=== PATIENT | male | born 1950 | race Caucasian/White ===

== ENCOUNTER 2016-12-21 11:12 | Inpatient (IN) | payer OTHER ==
[2016-12-21] MEDS ORDERED: ASPIRIN 81 MG CHEWABLE TAB PO ONE (11:18)
--- NOTE | 2016-12-21 11:23 | CPEKG ---
Heart Rate: 60 RR Interval: 1000 P-R Interval: 132 QRSD Interval: 96 QT Interval: 416 QTC Interval: 416 P [place]: 75 QRS [place]: -18 T Wave [place]: 79 EKG Severity - OTHERWISE NORMAL ECG - EKG Impression: SINUS RHYTHM EKG Impression: BORDERLINE LEFT AXIS DEVIATION Electronically Signed By: Tessa Bains 21-Dec-2016 15:55:53
[2016-12-21 11:34] LABS: % IMMATURE GRANULYOCYTES 0.4 % (0.0-1.1); ABSOLUTE IMMATURE GRANULOCYTES 0.03 10^3/uL (0.00-0.10); ADD DIFF? NO; ADD MORPH? NO; ADD SCAN? NO; ATYPICAL LYMPHOCYTE FLAG 10 (0-99); FRAGMENT RBC FLAG 0 (0-99); HEMATOCRIT 50.9 % (40.0-51.0); HEMOGLOBIN 17.5 g/dL (13.7-17.5); LEFT SHIFT FLG 0 (0-99); LIPEMIA HEMOLYSIS FLAG 90 (0-99); MEAN CELL HEMOGLOBIN 33.3 pg (27.9-34.1); MEAN CELL HEMOGLOBIN CONCENTR. 34.4 g/dL (32.4-36.7); MEAN PLATELET VOLUME 10.9 fL (8.7-11.7); PLATELET CLUMPS FLAG 20 (0-99); PLATELET COUNT 187 10^3/uL (150-400); RED BLOOD CELL COUNT 5.25 10^6/uL (4.40-6.38); RED CELL DISTRIBUTION WIDTH 12.4 % (11.5-15.2)
[2016-12-21 11:44] LABS: ANION GAP 11 mEq/L (8-16); CALCIUM 9.9 mg/dL (8.5-10.4); CARBON DIOXIDE 28 mEq/l (22-31); CHLORIDE 101 mEq/L (97-110); CREATININE 1.3 mg/dL (0.7-1.3); GLOMERULAR FILTRATION RATE 55; GLUCOSE 91 mg/dL (70-100); SODIUM 140 mEq/L (134-144)
--- NOTE | 2016-12-21 11:46 | EDPHY ---
H & P Stated Complaint: Chest Pain HPI/ROS: CHIEF COMPLAINT: Chest pain HISTORY OF PRESENT ILLNESS: The patient is a 66-year-old male presenting with 10 days of intermittent chest pain. The patient reports these episodes usually occur with exertion. Last night around 4am he woke up with chest congestion and dyspnea. This lasted for 20-30 minutes and then resolved. The patient was able to go back to sleep after pain subsided. The patient experienced similar symptoms in 2013 and was admitted. He had a nuclear stress test performed that was normal. , diabetes, or hyperlipidemia. He does not smoke cigarettes. His mother had coronary artery bypass grafting performed when she was in her 70s. REVIEW OF SYSTEMS: A ten point review of systems was performed and is negative with the exception of the items mentioned in the HPI. Past medical history: Diverticulitis, Erectile dysfunction Past surgical history: Knee replacement. Family history: Mother with CAD, had CABG. Social history: Nonsmoker. 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 , lives with at home. General Appearance: Alert. Vital signs reviewed. BP 158/82 Eyes: Pupils equal and round, no conjunctival injection, no discharge. Anicteric. ENT, Mouth: Mucous membranes are moist, no oropharyngeal erythema or edema. Neck: No lymphadenopathy, supple. Respiratory: Lungs are clear to auscultation; no wheezes, rales, or rhonchi. Cardiovascular: Regular rate and rhythm; no murmur, rub, or gallop. Gastrointestinal: Abdomen is soft and nontender, no masses or organomegaly, bowel sounds normal. Skin: Warm and dry, no rashes on exposed skin, normal color. Back: Nontender to palpation over the thoracolumbar spine. No CVAT. Extremities: No lower extremity edema, no calf tenderness or swelling. Neurological: Alert and oriented. Moving all four extremities easily and equally. Psychiatric: Normal affect. Source: Patient - Personal History Current Tetanus Diphtheria and Acellular Pertussis (TDAP): Yes Tetanus Vaccine Date: < 10 years - Medical/Surgical History Hx Asthma: No Hx Chronic Respiratory Disease: No Hx Diabetes: No Hx Cardiac Disease: No Hx Renal Disease: No Hx Cirrhosis: No Hx Alcoholism: No Hx HIV/AIDS: No Hx Splenectomy or Spleen Trauma: No Other PMH: Knee Replacement - Social History Smoking Status: Never smoked Constitutional: Initial Vital Signs Temperature (C) 36.7 C 12/21/16 11:20 Heart Rate 60 08/22/17 11:20 Respiratory Rate 18 12/21/16 11:20 Blood Pressure 158/82 H 12/21/16 11:20 O2 Sat (%) 97 12/21/16 11:20 O2 Delivery Mode Room Air Allergies/Adverse Reactions: No Known Allergies Allergy (Verified 07/01/15 09:13) Home Medications: Medication Instructions Recorded Cholecalciferol (Vitamin D3) 5,000 unit PO DAILY 11/13/13 [Vitamin D3] Herbals/Supplements -Info Only 1 ea PO DAILY 11/13/13 Testosterone Cypionate 0.4 ml IM ALVAREZ 11/13/13 Medical Decision Making - Diagnostics EKG Interpretation: 12 lead EKG is interpreted in Trace master View by emergency department physician. No changes compared to previous. Imaging Results: Imaging Impressions Chest X-Ray 12/21/16 11:18 Impression: No acute pulmonary disease. Imaging: Discussed imaging studies w/ call center rn Radiologist, I viewed and interpreted images myself ED Course/Re-evaluation: The patient presents with intermittent chest pain on exertion for the past 10 days. Last night chest pain woke him from sleep. Plan for cardiac work up. He was sent here by his PCP Dr. Holland for further evaluation. I ordered Chest x-ray and lab work including CBC, Chemistry, and Troponin. Chest x-ray is normal. Troponin is normal. Lab work is otherwise negative. Patient received 324mg Aspirin. The 12 lead EKG was interpreted by myself: Mild ST depression in leads V4 and V5. See hard copy and/or "tracemaster" electronic copy for interpretation. 1:35 p.m.: I spoke to the hospitalist team, the patient will be admitted to Dr. Miramontes. Is minimal cardiac risk factors but has been experiencing chest pain with exertion that resolves with rest. It is not clear to me whether last night's episode was pain or dyspnea--if pain, that means he had an episode of chest pain while at rest. I am concerned about unstable angina in this setting. He is being admitted for serial cardiac enzymes and further testing as needed. He did undergo nuclear stress test in 2013. Differential Diagnosis: Chest pain including but not limited to myocardial ischemia, pulmonary embolus, chest wall pain, pleural inflammation and pulmonary infectious causes. - Data Points Laboratory Results: Laboratory Results 12/21/16 11:27 12/21/16 11:27 12/21/16 12/21/16 11:27 11:27 WBC 7.29 10^3/uL 10^3/uL (3.80-9.50) RBC 5.25 10^6/uL 10^6/uL (4.40-6.38) Hgb 17.5 g/dL g/dL (13.7-17.5) Hct 50.9 % % (40.0-51.0) MCV 97.0 fL fL (81.5-99.8) MCH 33.3 pg pg (27.9-34.1) MCHC 34.4 g/dL g/dL (32.4-36.7) RDW 12.4 % % (11.5-15.2) Plt Count 187 10^3/uL 10^3/uL (150-400) MPV 10.9 fL fL (8.7-11.7) Neut % (Auto) 60.2 % % (39.3-74.2) Lymph % (Auto) 25.7 % % (15.0-45.0) [place] % (Auto) 9.6 % % (4.5-13.0) Eos % (Auto) 3.4 % % (0.6-7.6) Baso % (Auto) 0.7 % % (0.3-1.7) Nucleat RBC Rel Count 0.0 % % (0.0-0.2) Absolute Neuts (auto) 4.39 10^3/uL 10^3/uL (1.70-6.50) Absolute Lymphs (auto) 1.87 10^3/uL 10^3/uL (1.00-3.00) Absolute Monos (auto) 0.70 10^3/uL 10^3/uL (0.30-0.80) Absolute Eos (auto) 0.25 10^3/uL 10^3/uL (0.03-0.40) Absolute Basos (auto) 0.05 10^3/uL 10^3/uL (0.02-0.10) Absolute Nucleated RBC 0.00 10^3/uL 10^3/uL (0-0.01) Immature Gran % 0.4 % % (0.0-1.1) Immature Gran # 0.03 10^3/uL 10^3/uL (0.00-0.10) Sodium 140 mEq/L mEq/L (134-144) Potassium 5.0 mEq/L mEq/L (3.5-5.2) Chloride 101 mEq/L mEq/L (97-110) Carbon Dioxide 28 mEq/l mEq/l (22-31) Anion Gap 11 mEq/L mEq/L (8-16) BUN 17 mg/dL mg/dL (7-23) Creatinine 1.3 mg/dL mg/dL (0.7-1.3) Estimated GFR 55 Glucose 91 mg/dL mg/dL (70-100) Calcium 9.9 mg/dL mg/dL (8.5-10.4) Troponin I < 0.012 ng/mL ng/mL (0.000-0.034) Medications Given: Discontinued Medications Aspirin (Aspirin) 324 mg PO EDNOW ONE Stop: 12/21/16 11:19 Last Admin: 12/21/16 11:25 Dose: 324 mg Departure - Departure Disposition: [facility] Inpatient Acute Clinical Impression: Chest pain on exertion Condition: Fair Report Scribed for: Tessa Bains Report Scribed by: Idalia Hidalgo Date of Report: 12/21/16 Time of Report: 13:56 Physician Review and Approval Statement: 12/21/16 13:56 Portions of this note were transcribed by the registered medical assistant. I, Dr. Tessa Bains, personally performed the history, physical exam, and medical decision- making; and confirmed the accuracy of the information in the transcribed note.
[2016-12-21 11:56] LABS: TROPONIN I < 0.012 ng/mL (0.000-0.034)
[2016-12-21] MEDS ORDERED: ACETAMINOPHEN 325 MG TAB PO PRN (14:10)
[2016-12-21] MEDS ORDERED: ONDANSETRON 4 MG/2 ML VIAL IVP PRN (14:10)
[2016-12-21] MEDS ORDERED: ONDANSETRON DISINTEGRATING 4 MG TAB PO PRN (14:10)
[2016-12-21] MEDS ORDERED: TEMAZEPAM 15 MG CAP PO PRN (14:10)
--- NOTE | 2016-12-21 14:44 | GHP ---
[f rep st] HISTORY AND PHYSICAL DATE OF ADMISSION: 12/21/2016 CHIEF COMPLAINT: Chest pain. HISTORY OF PRESENT ILLNESS: This is a 66-year-old male with minor cardiac risk factors, presenting with 10 days of exertional chest pressure, relieved with rest. He does admit to some shortness of b reath that is associated. No significant loss of exercise tolerance. No chest pain at rest. He di d have a stress test done 2 years ago for chest pain that was different in nature. He denies any fe vers or chills. REVIEW OF SYSTEMS: A 10-point review of systems was obtained, and other than stated, was negative. PAST MEDICAL HISTORY: Hypogonadism. MEDICATIONS: Reviewed. SOCIAL HISTORY: No smoking or alcohol. 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 FAMILY HISTORY: Mother had CABG in her 70s. PHYSICAL EXAM: VITAL SIGNS: Afebrile, blood pressure is 146/62, heart rate 62, oxygen saturation i s 93% on room air. GENERAL: Patient is well developed, , in no apparent distress. HEENT : Nonicteric sclerae. Extraocular movements intact. Moist mucous membranes. NECK: Supple. No t hyromegaly. LUNGS: Good effort. Clear to auscultation bilaterally. CARDIOVASCULAR: Regular rate and rhythm. No murmurs, rubs, or gallops. ABDOMEN: Positive bowel sounds. Soft, nontender, nond istended. No hepatosplenomegaly. EXTREMITIES: No clubbing, cyanosis, or edema. SKIN: Without ra sh, dry, intact. NEUROLOGIC: Moving all 4 extremities equally. PSYCH: Normal mood and affect. LABS: CBC, chemistry and troponin are negative. EKG, personally reviewed and interpreted, shows so me slight ST-segment depressions in V3 and V4, and in 2. ASSESSMENT: This is a 66-year-old male, who presented with exertional chest pain. PLAN: Exertional chest pain. The patient will be admitted. We will cycle cardiac enzymes. We had a discussion with Cardiology, that he does have some subtle EKG changes, with exertional chest pain , may be reasonable to go directly to heart cath versus stress testing, but we will discuss with Car diolQuinceey. /[id number]/MODL
[2016-12-22 04:01] LABS: CHOLESTEROL 185 mg/dL (140-220); CHOLESTEROL/HDL RATIO 5.97 RATIO (1.00-4.97); HIGH DENSITY LIPOPROTEIN 31 mg/dL (40-65); LDL/HDL RATIO 3.58 RATIO (1.00-3.64); LOW DENSITY LIPOPROTEIN 111 mg/dL (80-100); NON-HIGH DENSITY LIPOPROTEIN 154 mg/dL (90-129); TRIGLYCERIDE 216 mg/dL (40-150); VERY LOW DENSITY LIPOPROTEINS 43 mg/dL (8-25)
[2016-12-22 04:14] LABS: TROPONIN I 0.013 ng/mL (0.000-0.034)
--- NOTE | 2016-12-22 08:49 | CPEKG ---
Heart Rate: 58 RR Interval: 1034 P-R Interval: 132 QRSD Interval: 100 QT Interval: 416 QTC Interval: 409 P [place]: 72 QRS [place]: -13 T Wave [place]: 133 EKG Severity - ABNORMAL ECG - EKG Impression: SINUS RHYTHM EKG Impression: NONSPECIFIC T ABNORMALITIES, LATERAL LEADS Electronically Signed By: Ish Vasquez 22-Dec-2016 15:21:45
--- NOTE | 2016-12-22 09:01 | GCON ---
[f rep st] CONSULTATION DATE OF CONSULTATION: 12/22/2016 CHIEF COMPLAINT: We have been asked by Dr. Miramontes to evaluate this patient with a chief complaint of chest pain. HISTORY OF PRESENT ILLNESS: The patient is a 66-year-old gentleman with risk factors including age and family history, who presents with a chief complaint of chest pain. The patient was in his usual state of health until approximately 10 days prior to admission, when he began to experience chest p ain. The chest pain is described as a pressure in the center of his chest without radiation. The c hest pain is not associated with nausea, vomiting, or diaphoresis. The chest pain is brought on wit h exertion and relieved with rest. Over the last 10 days, the patient noted increase in the frequen cy and severity of his symptoms, prompting him to seek further evaluation. In the emergency departm ent, an EKG performed, demonstrating sinus rhythm with nonspecific ST and T-wave changes. His initi al biomarker was within normal limits. We have been asked to consult to help in the further managem ent of this patient. The patient denies a history of palpitations, syncope, or presyncope. There i s no history of orthopnea or PND. PAST MEDICAL HISTORY: Hypogonadism. MEDICATIONS: Please see medicine reconciliation form. ALLERGIES: No known drug allergies. 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 He does not smoke. He denies problems w ith alcohol. FAMILY HISTORY: Notable for coronary artery disease at a later age of onset. REVIEW OF SYSTEMS: 10-point review of systems is negative, except as noted in HPI. PHYSICAL EXAMINATION: GENERAL: Patient is resting comfortably in his chair. He does not appear to be in acute distress. VITALS: Temperature is afebrile. Pulse is 67, blood pressure 131/65, respi ratory rate is 16, SaO2 is 90% on room air. HEENT: Normocephalic, atraumatic. Extraocular muscles intact. NECK: No JVD. No bruits. LUNGS: Clear to auscultation bilaterally. CARDIOVASCULAR: R egular rate and rhythm S1, S2. No murmurs, rubs, or gallops appreciated. ABDOMEN: Soft, nontender . Normoactive bowel sounds. No hepatosplenomegaly noted. Aorta could not be adequately palpated. EXTREMITIES: No clubbing, cyanosis, or edema. SKIN: No evidence of rashes. NEURO: Patient is a wake, alert, and oriented x3. LABORATORY: White blood cell count is 7.29, hemoglobin 17.5, hematocrit 50.9, platelet count 187. Sodium 140, potassium 5.0, chloride 101, carbon dioxide 28, BUN 17, creatinine 1.3. Troponin within normal limits x3. LDL cholesterol is 111, HDL cholesterol is 31. EKG demonstrates sinus rhythm, n onspecific inferior and lateral ST changes. Telemetry monitoring was notable for several runs of no nsustained ventricular tachycardia. These were asymptomatic. ASSESSMENT AND PLAN: The patient is a 66-year-old gentleman with multiple cardiac risk factors, who presents with a chest pain syndrome concerning for crescendo angina. His EKG is notable for nonspe cific ST and T-wave changes. His biomarkers are within normal limits. Reviewed options for risk st ratification including stress testing and cardiac catheterization. The patient wishes to discuss th enrique options with his prior to making a decision. Given the nonsustained ventricular tachycardi a on telemetry monitoring and his classic anginal symptoms, I indicated that an angiogram would like ly be preferable in his situation. /[id number]/MODL
[2016-12-22] MEDS ORDERED: IOPAMIDOL (ISOVUE-370) 150 ML BTL IV ONE ×2 (09:45→10:50)
[2016-12-22] MEDS ORDERED: LIDOCAINE 1% 300 MG/30 ML SDV ONE (09:45)
[2016-12-22] MEDS ORDERED: MIDAZOLAM 2 MG/2 ML VIAL ONE ×2 (09:45→10:43)
[2016-12-22] MEDS ORDERED: fentaNYL 100 MCG/2 ML INJ ONE ×2 (09:45→10:43)
[2016-12-22] MEDS ORDERED: BIVALIRUDIN 250 MG/5 ML VIAL IV ONE (10:21)
[2016-12-22] MEDS ORDERED: NITROGLYCERIN 1,500 MCG/15 ML VIAL MISC ONE (10:53)
[2016-12-22] MEDS ORDERED: TICAGRELOR 90 MG TAB ONE (10:59)
[2016-12-22] MEDS ORDERED: ASPIRIN EC 325 MG TAB PO ONE (11:25)
[2016-12-22] MEDS ORDERED: ATROPINE SULFATE 1 MG/10 ML SYR IVP PRN (11:25)
[2016-12-22] MEDS ORDERED: NITROGLYCERIN 0.4 MG BTL SL PRN (11:25)
[2016-12-22] MEDS ORDERED: TICAGRELOR 90 MG TAB PO ONE (11:25)
[2016-12-22] MEDS ORDERED: NS 1,000 ML IV SCH (11:30)
--- NOTE | 2016-12-22 11:52 | CPIP ---
[f rep st] INVASIVE CARDIAC PROCEDURE DATE OF PROCEDURE: 12/22/2016 PROCEDURES PERFORMED: 1. Coronary angiography. 2. Left ventriculography. 3. Stenting of left anterior descending coronary artery with Synergy drug-eluting stents. 4. Stenting of 2nd diagonal artery with Synergy drug-eluting stents. INDICATION: Acute coronary syndrome. ACCESS: Patient was prepped and draped in sterile fashion. 1% lidocaine was used to anesthetize th e right inguinal region. A 6-Romanian introducer sheath was placed selectively into the right common femoral artery via a modified Seldinger technique. CORONARY ANGIOGRAPHY: A 6-Romanian JL4 was advanced to the left main coronary artery and images [place]. The left main coronary artery bifurcated into an LAD and circumflex coronary arteries. The le ft main coronary artery appeared normal. The left anterior descending coronary artery is diffusely diseased. In the mid vessel, there was a single discrete 50% stenosis present. In the mid 2 segmen t of the vessel there is a single discrete 75% to 80% stenosis present. The second diagonal artery had a proximal 99% stenosis present. The circumflex coronary artery is relatively small. Circumfle x coronary artery gave rise to 2 small OM branches. The circumflex coronary artery had mild luminal irregularities throughout. There was no stenosis greater than 15%. 6-Romanian JR4 was advanced to t he right coronary artery and images obtained. The right coronary artery is dominant. The right cor onary artery had mild diffuse disease throughout. In the proximal segment, there is a discrete 20% stenosis present, and in the mid to distal segment there is a segmental 30% stenosis present. The P DA had an ostial 50% stenosis present. LEFT VENTRICULOGRAPHY: Left ventriculography was not performed in an effort to spare contrast given creatinine of 1.3 and need for multivessel percutaneous intervention. A 6-Romanian pigtail catheter was advanced into the left ventricle and pressures obtained. Left ventricular end-diastolic pressur e was 8 mmHg. PERCUTANEOUS CORONARY INTERVENTION OF THE LEFT ANTERIOR DESCENDING CORONARY ARTERY: A 6-Romanian EBU 3.5 catheter was advanced to the left main coronary artery and images obtained. Angiography confirm ed the presence of intermediate to high-grade disease involving the mid 1 and mid 2 segments of the left anterior descending coronary artery. A Luge wire was placed in the distal vessel and position, verified by angiography. A 2.5 x 15 Emerge balloon was used to pre-dilate the mid 1 and mid 2 segm ents of the left anterior descending coronary artery. A 2.5 x 38 Synergy drug-eluting stent was the n placed across both lesions and deployed. Followup angiography demonstrated distal edge dissection versus distal edge spasm. A 2.25 x 8 Synergy drug-eluting stent was then telescoped within the pre viously placed stent but extended distally over the section of concern and deployed. Followup angio graphy demonstrated DEEPAK 3 flow. No residual stenosis. The Luge wire was then withdrawn into the 2 nd diagonal artery and position verified by angiography. A 2.0 x 12 Emerge balloon was used to pre- dilate the lesion. Followup angiography demonstrated residual stenosis with DEEPAK 3 flow. A 2.25 x 12 Synergy drug-eluting stent was then placed across the lesion and deployed. Followup angiography demonstrated DEEPAK 3 flow. No residual stenosis. COMPLICATIONS: None. CONCLUSIONS: 1. Single-vessel coronary artery disease. 2. Normal left ventricular end-diastolic pressure. 3. Status post successful stenting of the left anterior descending coronary artery and diagonal cor onary artery with Synergy drug-eluting stents. /[id number]/MODL
--- NOTE | 2016-12-22 12:39 | CPEKG ---
Heart Rate: 55 RR Interval: 1091 P-R Interval: 140 QRSD Interval: 100 QT Interval: 404 QTC Interval: 387 P [place]: 69 QRS [place]: -19 EKG Severity - ABNORMAL ECG - EKG Impression: SINUS RHYTHM EKG Impression: BORDERLINE LEFT AXIS DEVIATION EKG Impression: T ABNORMALITIES, ANT-LAT LEADS Electronically Signed By: Ish Vasquez 22-Dec-2016 15:21:36
--- NOTE | 2016-12-22 17:21 | ECHO ---
[id number] + + [address] : : [place] [address] : : [phone] + Adult Echocardiographic Report + ---------+ :Name: UNIQUE SALAZAR FStudy Date: 12/22/2016 11:16 AM : : Hospital Admission Number: [id number] Locat ion: CVC4: :: 1950 Gender: Male Height: 73 in : :Age: 66 yrs Race: WH Weight: 201 l b : :Reason For Study: Eval LV Fx : : BSA: 2.2 mete rs2 : :History: Post Stents : + ---------+ MMode/2D Measurements \T\ Calculations IVSd: 0.78 cm LVIDd: 4.8 cm FS: 35.8 % Ao root diam: 3.5 cm LVPWd: 1.0 cm LVIDs: 3.1 cm EDV(Teich): 105.5 ml ACS: 1.6 cm ESV(Teich): 36.6 ml EF(Teich): 65.3 % Normal Measurement Values: + + :LVIDd (3.5-5.7cm) IVSd (0.6-1.1cm) LVPWd (0.6-1.1cm) Aortic Root (2.0-3.7cm)Left Atrium (1.5-4.0cm): :LV Vol(d) (76-115ml) LV Vol(s) (29-48ml) Ejec Fraction (50-65%)PV Mark (0.6- 1.2m/s) TV Mark (0.4-1.0m/s) : :MV E Mark (0.8-1.0m/s)MV A Mark (0.3-1.0m/s)LVOT Mark (0.7-1.2m/s) Asc Ao Mark ( 0.9-1.8m/s) : + + Doppler Measurements \T\ Calculations MV E max mark: Ao V2 max: LV V1 max: PA V2 max: 65.2 cm/sec 88.2 cm/sec 85.9 cm/sec 67.9 cm/sec MV A max mark: Ao max PG: LV V1 max PG: PA max P.4 cm/sec 3.1 mmHg 3.0 mmHg 1.8 mmHg MV E/A: 1.3 Left Ventricle The left ventricle is normal in size. There is normal left ventricular wall thickness. The left ventricular ejection fraction is normal. There is Doppler evidence for diastolic dysfunction. Ejection Fraction = 65%. The left ventricular wall motion is normal. Right Ventricle The right ventricle is normal in size and function. Atria The left atrial size is normal. Right atrial size is normal. Mitral Valve The mitral valve is normal in structure and function. There is no evidence of mitral valve prolapse. There is no mitral valve stenosis. There is trace mitral regurgitation. Tricuspid Valve Normal tricuspid valve. No tricuspid regurgitation. Aortic Valve The aortic valve is trileaflet. The non-coronary cusp is thickened and sclerotic. There is no aortic stenosis. There is no aortic insufficiency. Pulmonic Valve The pulmonic valve is not well visualized. There is no pulmonic valvular regurgitation. Great Vessels The aortic root is normal size. Pericardium/Pleural There is no pericardial effusion. Conclusion A complete two-dimensional transthoracic echocardiogram was performed (2D, M-mode, Doppler and color flow Doppler). 1. The left ventricle is normal in size. The Ejection Fraction = 65%. 2. The mitral valve is normal in structure and function. There is trace mitral regurgitation. 3. The aortic valve is trileaflet. The non-coronary cusp is thickened and sclerotic. There is no aortic stenosis. There is no aortic insufficiency. 4. The pulmonary artery pressure could not be adequately estimated. Final Reading Physician: Ash Delgado MD electronically signed on 12/22/2016 05:19 PM Ordering Physician: Ck Miramontes Performed By: Oscar Arreguin, CS
[2016-12-22] MEDS: CARVEDILOL 3.125 MG TAB PO SCH (17:33)
--- NOTE | 2016-12-22 18:19 | HOSPPROG ---
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
[2016-12-22] MEDS: TICAGRELOR 90 MG TAB PO SCH (23:37)
[2016-12-23 05:50] LABS: % IMMATURE GRANULYOCYTES 0.6 % (0.0-1.1); ABSOLUTE IMMATURE GRANULOCYTES 0.06 10^3/uL (0.00-0.10); ADD DIFF? NO; ADD MORPH? NO; ADD SCAN? NO; ATYPICAL LYMPHOCYTE FLAG 10 (0-99); FRAGMENT RBC FLAG 20 (0-99); HEMATOCRIT 53.9 % (40.0-51.0); HEMOGLOBIN 18.7 g/dL (13.7-17.5); LEFT SHIFT FLG 0 (0-99); LIPEMIA HEMOLYSIS FLAG 90 (0-99); MEAN CELL HEMOGLOBIN CONCENTR. 34.7 g/dL (32.4-36.7); MEAN CELL VOLUME 95.2 fL (81.5-99.8); MEAN PLATELET VOLUME 11.2 fL (8.7-11.7); PLATELET CLUMPS FLAG 10 (0-99); PLATELET COUNT 203 10^3/uL (150-400); RED BLOOD CELL COUNT 5.66 10^6/uL (4.40-6.38); RED CELL DISTRIBUTION WIDTH 12.3 % (11.5-15.2)
[2016-12-23 06:10] LABS: ANION GAP 13 mEq/L (8-16); CALCIUM 9.7 mg/dL (8.5-10.4); CARBON DIOXIDE 25 mEq/l (22-31); CHLORIDE 101 mEq/L (97-110); CREATININE 1.3 mg/dL (0.7-1.3); GLOMERULAR FILTRATION RATE 55; GLUCOSE 98 mg/dL (70-100); POTASSIUM 4.9 mEq/L (3.5-5.2); SODIUM 139 mEq/L (134-144)
[2016-12-23] MEDS ORDERED: ASPIRIN EC 81 MG TAB PO SCH (09:00)
[2016-12-23] MEDS ORDERED: ATORVASTATIN CALCIUM 40 MG TAB PO SCH (09:00)
[2016-12-23] MEDS: CARVEDILOL 3.125 MG TAB PO SCH (09:13)
[2016-12-23] MEDS: TICAGRELOR 90 MG TAB PO SCH (09:14)
--- NOTE | 2016-12-23 10:35 | CPEKG ---
Heart Rate: 62 RR Interval: 968 P-R Interval: 140 QRSD Interval: 92 QT Interval: 399 QTC Interval: 406 P [place]: 69 QRS [place]: -16 EKG Severity - BORDERLINE ECG - EKG Impression: SINUS RHYTHM EKG Impression: BORDERLINE LEFT AXIS DEVIATION EKG Impression: BORDERLINE T ABNORMALITIES, ANT-LAT LEADS Electronically Signed By: Ish Vasquez 23-Dec-2016 15:44:08
[2016-12-23 10:40] VITALS: BP 138/80; PULSE 60; RESP 20; TEMP 98.1; O2SAT 93
--- NOTE | 2016-12-23 12:10 | GDS ---
[f rep st] DISCHARGE SUMMARY DIAGNOSES: 1. Chest pain, secondary to known coronary artery disease. 2. Coronary artery disease, status post stenting x2 of the left anterior descending artery and the 2nd diagonal artery with drug-eluting stents. 3. Hyperlipidemia. The patient will be started on a statin. CONSULTATION: Cardiology. PROCEDURE: Cardiac catheterization with stent x2 to the LAD and the 2nd diagonal with drug-eluting stents. HOSPITAL COURSE: A 66 year old presented with 10 days of chest pain, found to be secondary to unstable angina. He underwent cardiac catheterization and stenting to the LAD and the 2nd diagonal artery with Synergy drug-eluting stents. He tolerated the procedure well. He had no further chest pain. CBC remained normal. His troponin was normal. The patient underwent catheterization because of history and concern for active coronary disease. He was also noted to have a total cholesterol of 185 with an LDL of 111 and will be placed on a statin. His cholesterol to HDL ratio was 5.97. The patient findings and cardiac catheterization were discussed with Dr. Ash Delgado. The right inguinal region was noted to be healing well without hematoma or pain. Dr. Delgado requested a followup in approximately 2 weeks in his office. DISCHARGE MEDICATIONS: 1. ASA 81 mg daily. 2. Carvedilol 3.125 mg twice daily. 3. Lisinopril 5 mg daily. 4. Vitamin D3 5000 IU daily. 5. Herbal supplementation. 6. Testosterone 200 mg/mL 0.4 mL IM weekly. 7. Lipitor 20mg hs 8. Eliquis 5mg BID PLAN: Gentleman is discharged home accompanied by his . I have discussed dietary structures for this gentleman, including a cardiac, low fat, low salt diet, and suggested a diet also strong in vegetables. His medications have been explained and all questions were answered. His medications were ordered and transmitted to the [facility] pharmacy. Followup was planned with Dr. Ash Delgado in approximately 2 weeks. He will also see Dr. Richard Holland, his PCP as needed. TIME: This discharge required 45 minutes, greater than 50% to camp head counselor and coordinate the gentleman's care. I also discussed the case with Dr. Ash Delgado regarding his findings plans and follow up. /[id number]/MODL MTDD
--- NOTE | 2016-12-23 18:52 | SOAPPROG ---
[facility] Progress Note Assessment/Plan: 1. Coronary artery disease - Pt presented with symptoms consistent with crescendo angina. He was taken to the cardiac catheterization laboratory where is found to have high-grade disease involving his left anterior descending coronary artery and 2nd diagonal artery. He was treated with percutaneous coronary intervention of the left anterior descending coronary artery and diagonal artery using Synergy drug-eluting stents. He denies access site complications as well as recurrent symptoms of angina. Continue medical management with aspirin, Brilinta, Coreg, lisinopril, and Lipitor. 2. HTN - Patient's blood pressure was moderately elevated on admission he was started on Coreg and lisinopril form balloon improved blood pressure control. Continue current therapy. 3. Hyperlipidemia - Patient's LDL cholesterol was 111 on admission. His goal is less than 70 given his coronary artery disease. Patient was started on Lipitor 40 mg daily. He will need FLP and LFTs in approximately 6 months period of time to evaluate therapy. Subjective: No chest pain No orthopnea or PND ambulating with out difficulty No access site complications Objective: Vital Signs Temp Pulse Resp BP Pulse Ox 36.7 C 60 20 138/80 H 93 12/23/16 10:40 12/23/16 10:40 12/23/16 10:40 12/23/16 10:40 12/23/16 10:40 Laboratory Results 12/23/16 04:55 12/23/16 04:55 12/22/16 12/23/16 12/24/16 05:59 05:59 05:59 Intake Total 450 Balance 450 - Time Spent With Patient Time Spent With Patient: Greater than 50% of this 35 minutes visit was spent discussing the patient's medical condition and appropriate medical therapy for the management of this medical condition. Physical Exam - Physical Exam General Appearance: alert, no apparent distress Respiratory: lungs clear Cardiac/Chest: regular rate, rhythm Skin: normal color Extremities: other (No hematoma or echymosis. 2+ DP), No pedal edema Neuro/Psych: alert, oriented x 3 ICD10 Worksheet Patient Problems: Problems Problem Status Onset Chest pain Acute Chest pain on exertion Acute
[2016-12-24] MEDS ORDERED: LISINOPRIL 5 MG TAB PO SCH (09:00)
== END 2016-12-23 12:45 | disposition home or self-care (01) | DRG 247 ==
LOC: F2W 15:16 → OBSVTOIN 12-22 15:56
PROVIDERS: ADMIT Internal Medicine; ATTEND Internal Medicine
PROC: B2111ZZ Fluoroscopy of Multiple Coronary Arteries using Low Osmolar Contrast (ICD-10-PCS; principal; 2016-12-22)
PROC: 4A023N7 Measurement of Cardiac Sampling and Pressure, Left Heart, Percutaneous Approach (ICD-10-PCS; principal; 2016-12-22)
PROC: 027136Z Dilation of Coronary Artery, Two Arteries with Three Drug-eluting Intraluminal Devices, Percutaneous Approach (ICD-10-PCS; principal; 2016-12-22)
DX: I25.110 Atherosclerotic heart disease of native coronary artery with unstable angina pectoris (principal); E78.5 Hyperlipidemia, unspecified; I10 Essential (primary) hypertension; Z96.659 Presence of unspecified artificial knee joint; E29.1 Testicular hypofunction
CPT/HCPCS: C1725; C1760; C1769; C1874; C1887; C9600; C9601; G0378; J0583; J1644; J2250; J3010; Q9967